=== PATIENT | male | born 2000 | race Caucasian/White ===

== ENCOUNTER 2019-10-04 21:45 | Emergency (ER) | payer MEDICAID ==
--- NOTE | 2019-10-04 23:11 | ER Document Report ---
ED ENT - General Chief Complaint: Sore Throat Stated Complaint: SORE THROAT, LUMP ON NECK Time Seen by Provider: 10/04/19 23:04 Notes: CHIEF COMPLAINT: Neck pain for 1 day HPI: 19-year-old male presenting for evaluation of left lymph node swelling in the neck today. Mild sore throat with swallowing. No fever. Denies nausea or vomiting. Denies chest pain shortness of breath or cough. Denies exposure to anyone with COVID that he is aware of ROS: See HPI - all other systems were reviewed and are otherwise negative Constitutional: no fever Eyes: no drainage, no blurred vision ENT: no runny nose, + sore throat, positive lymphadenopathy Cardiovascular: no chest pain Resp: no SOB, no cough GI: no vomiting, no diarrhea, no abdominal pain : no dysuria Integumentary: no rash Allergy: no hives Musculoskeletal: no extremity pain or swelling Neurological: no numbness/tingling, no weakness MEDICATIONS: I agree with the patient medications as charted by the RN. ALLERGIES: I agree with the allergies as charted by the RN. PAST MEDICAL HISTORY/PAST SURGICAL HISTORY: Reviewed and agree as charted by RN. SOCIAL HISTORY: Reviewed and agree as charted by RN. FAMILY HISTORY: No significant familial comorbid conditions directly related to patient complaint EXAM: Reviewed vital signs as charted by RN. CONSTITUTIONAL: Alert and oriented and responds appropriately to questions. Well-appearing; well-nourished HEAD: Normocephalic; atraumatic EYES: PERRL; Conjunctivae clear, sclerae non-icteric ENT: normal nose; no rhinorrhea; moist mucous membranes; pharynx without lesions noted, no uvula edema or deviation, no tonsillar hypertrophy, phonation normal NECK: Supple without meningismus; non-tender; left anterior tonsillar lymph node swollen to approximately 1.5 cm mildly tender nonmobile no overlying erythema or fluctuant areas, no masses CARD: RRR; no murmurs, no clicks, no rubs, no gallops; symmetric distal pulses RESP: Normal chest excursion without splinting or tachypnea; breath sounds clear and equal bilaterally; no wheezes, no rhonchi, no rales, pulse oximetry ABD/GI: Normal bowel sounds; non-distended; soft, non-tender, no rebound, no guarding; no palpable organomegaly or masses. BACK: The back appears normal and is non-tender to palpation, there is no CVA tenderness EXT: Normal ROM in all joints; non-tender to palpation; no cyanosis, no effusions, no edema SKIN: Normal color for age and race; warm; dry; good turgor; no acute lesions noted NEURO: Moves all extremities equally; Motor and sensory function intact PSYCH: The patient's mood and manner are appropriate. Grooming and personal hygiene are appropriate. MDM: 19-year-old male with an isolated lymphadenopathy left lateral and anterior neck. Rapid strep is negative likely a viral etiology has been present for 1 day. Gave patient strict return precautions. Anti-inflammatories, PCP follow- up TRAVEL OUTSIDE OF THE [place] IN LAST 30 DAYS: No - Related Data Allergies/Adverse Reactions: No Known Allergies Allergy (Verified 08/31/18 02:02) Past Medical History - Social History Smoking Status: Current Every Day Smoker Family History: Reviewed & Not Pertinent Patient has homicidal ideation: No Renal/ Medical History: Denies: Hx Peritoneal Dialysis Physical Exam - Vital signs Vitals: Temp 99.6 F 10/04/19 22:05 Course - Vital Signs Vital signs: Temp Pulse Resp BP Pulse Ox 99.6 F 116 H 18 151/82 H 99 10/04/19 22:09 10/04/19 22:09 10/04/19 22:09 10/04/19 22:09 10/04/19 22:09 Discharge - Discharge Clinical Impression: Lymphadenopathy of head and neck, Viral syndrome Condition: Stable Disposition: HOME, SELF-CARE Additional Instructions: Continue Motrin or Tylenol consistently for pain over the next 24 to 48 hours. Hydrate well at home. Rapid strep initially was negative a throat culture has been added. This is likely a viral etiology at this time. If the swelling in the left neck persists for more than 2 to 3 weeks you will need to make sure you follow this up with a PCP for further evaluation Prescriptions: Ibuprofen [Motrin 600 Mg Tablet] 600 mg PO Q6H #15 tablet Referrals: TAMMY JACKSON DO [NO LOCAL MD] - Follow up as needed
[2019-10-04 23:24] VITALS: BP 135/71
== END 2019-10-04 23:40 | disposition home or self-care (01) ==
LOC: ER 21:45
DX: R59.1 Generalized enlarged lymph nodes (principal); B34.9 Viral infection, unspecified; J02.9 Acute pharyngitis, unspecified; R13.10 Dysphagia, unspecified; F17.200 Nicotine dependence, unspecified, uncomplicated
CPT/HCPCS: 87070; 87880; 99283